=== PATIENT | male | born 1945 | race Caucasian/White ===

== ENCOUNTER 2020-12-18 11:00 | Inpatient (IN) | payer OTHER ==
[~2020-12-18] VITALS: Ht 172.7 cm; Wt 107.0 kg
[~2020-12-18 11:00] MED LIST: CIPRO500 MG PO
[2020-12-18] MEDS ORDERED: STEGLATRO5 MG PO (12:22)
[2020-12-18] MEDS ORDERED: TENORMIN50 M1 PO (12:23)
[2020-12-18] MEDS ORDERED: CILOSTAZOL100 MG PO (12:23)
[2020-12-18] MEDS ORDERED: GLIMEPIRIDE2 MG (12:23)
[2020-12-18] MEDS ORDERED: ATORVASTATIN CA10 MG PO (12:23)
[2020-12-18] MEDS ORDERED: VASOTEC10 MG PO (12:24)
[2020-12-18] MEDS ORDERED: AVAPRO300 MG PO (12:24)
[2020-12-18] MEDS ORDERED: CHILDREN'S ASPI81 MG PO (12:25)
[2020-12-18] MEDS ORDERED: ORTHO DF 3,7751 EACH PO (12:25)
[2020-12-18] MEDS ORDERED: METFORMIN HCL1000 M2 PO (12:25)
[2020-12-23] MEDS ORDERED: AMLODIPINE BESY10 MG (07:55)
[2020-12-24] MEDS ORDERED: HYOSCYAMINE0.125 M1 SL (15:50)
[2020-12-24] MEDS ORDERED: ULTRACET PO (15:50)
[2020-12-24] MEDS ORDERED: DICLOFENAC SODI75 MG PO (15:51)
[2020-12-24] MEDS ORDERED: INTESTINEX680 M1 PO (15:51)
[2020-12-24] MEDS ORDERED: PROTONIX40 MG PO (15:52)
== END 2020-12-24 22:55 | disposition home or self-care (01) | DRG 331 ==
LOC: O/R 12-23 06:00 → SURH 12-23 06:00
PROVIDERS: ADMIT Surgery; ATTEND Surgery
PROC: 0DBH4ZZ Excision of Cecum, Percutaneous Endoscopic Approach (ICD-10-PCS; 2020-12-23)
PROC: 0DTJ4ZZ Resection of Appendix, Percutaneous Endoscopic Approach (ICD-10-PCS; principal; 2020-12-23 14:30)
PROC: 4A12X4Z Monitoring of Cardiac Electrical Activity, External Approach (ICD-10-PCS; 2020-12-24)
DX: D12.1 Benign neoplasm of appendix (principal); E66.01 Morbid (severe) obesity due to excess calories; Z68.35 Body mass index [BMI] 35.0-35.9, adult; E11.9 Type 2 diabetes mellitus without complications; G47.33 Obstructive sleep apnea (adult) (pediatric)